=== PATIENT | male | born 1950 | race Caucasian/White ===

== ENCOUNTER → 2018-10-04 | Outpatient (CLI) | payer MEDICARE ==
[~2018-10-04] MED LIST: ASCO250T6 PO; MULTIVITAMIN PO
== END | disposition home or self-care (01) ==
LOC: RAH 08:28
PROVIDERS: ATTEND Internal Medicine Gastroenterology
DX: N28.1 Cyst of kidney, acquired (principal); K74.60 Unspecified cirrhosis of liver
CPT/HCPCS: 76700

== ENCOUNTER → 2021-10-06 | Outpatient (CLI) | payer OTHER ==
[~2021-10-06] MED LIST changes: +ASCO250T24 PO; -ASCO250T6 PO
== END | disposition home or self-care (01) ==
LOC: RAH 08:16
PROVIDERS: ATTEND Internal Medicine Gastroenterology
DX: N28.1 Cyst of kidney, acquired (principal); K74.60 Unspecified cirrhosis of liver; R16.0 Hepatomegaly, not elsewhere classified; Z90.49 Acquired absence of other specified parts of digestive tract
CPT/HCPCS: 76700; 93975

== ENCOUNTER → 2023-02-05 | Outpatient (CLI) | payer OTHER | END | disposition home or self-care (01) | LOC: RAH 09:04 | PROVIDERS: ATTEND Internal Medicine Gastroenterology | DX: N28.1 Cyst of kidney, acquired (principal); K74.60 Unspecified cirrhosis of liver | CPT/HCPCS: 76700; 93975 ==

== ENCOUNTER → 2024-11-14 | Outpatient (CLI) | payer OTHER ==
[~2024-11-14] MED LIST changes: -ASCO250T24 PO; +[UNRECOGNIZED DRUG - CODE] PO
--- NOTE | 2024-11-14 09:59 | HMCIMG ---
CHEST 2VWS HISTORY: Abnormal weight loss COMPARISON: None FINDINGS: Frontal and lateral projections of the chest were obtained. COPD changes are seen. There is no acute pulmonary infiltrates or failure. The heart is not enlarged. No evidence of aortic calcification is seen. Degenerative changes are seen of the thoracolumbar spine. IMPRESSION: 1. No acute pulmonary infiltrates.
== END | disposition home or self-care (01) ==
LOC: RAH 08:49
PROVIDERS: ATTEND Internal Medicine Gastroenterology
DX: J44.9 Chronic obstructive pulmonary disease, unspecified (principal); R63.4 Abnormal weight loss; M47.815 Spondylosis without myelopathy or radiculopathy, thoracolumbar region
CPT/HCPCS: 71046

== ENCOUNTER → 2024-12-01 | Outpatient (CLI) | payer OTHER ==
[~2024-12-01] MED LIST changes: +IOHEXOL-350 75 ML VIAL IV ONE
--- NOTE | 2024-12-01 10:19 | HMCIMG ---
CT ABDOMEN/PELVIS W/WO CONTRAS HISTORY: Liver cirrhosis COMPARISON: None TECHNIQUE: Multiple sequential axial images of the abdomen and pelvis were obtained from the dome of the diaphragm through symphysis pubis. Patient was given 75 cc of Omnipaque through intravenous route. Oral contrast was given. FINDINGS: No pleural effusion is seen bilaterally. COPD changes are seen. There is no evidence of parenchymal disease or pulmonary nodule of the visualized lower lungs. Degenerative changes of the thoracolumbar spine are present. The heart is not enlarged. Post cholecystectomy changes are seen. The liver, spleen, adrenal glands and pancreas are unremarkable. There is no evidence of hydronephrosis bilaterally. There are right renal cysts with the largest measuring 3 cm. There is possible left renal pelvic stone measuring 5 mm. Fecal material is seen in the colon. There are normal size retroperitoneal and mesenteric lymph nodes. No ascites is seen. Atherosclerotic changes are present. Appendix is not well seen limiting evaluation. Pelvic sidewalls are symmetric bilaterally. Bladder is poorly distended. IMPRESSION: 1. No bowel obstruction is seen. Multiple right renal cysts. Possible left renal pelvic stone measuring [address] was performed with one or more following dose reduction techniques: automated exposure control, adjustment of the mA and kv according to patient's size, or use of a iterative reconstruction technique.
== END | disposition home or self-care (01) ==
LOC: RAH 08:11
PROVIDERS: ATTEND Internal Medicine Gastroenterology
DX: N28.1 Cyst of kidney, acquired (principal); K74.60 Unspecified cirrhosis of liver; N32.89 Other specified disorders of bladder; J44.9 Chronic obstructive pulmonary disease, unspecified; I70.90 Unspecified atherosclerosis; M47.815 Spondylosis without myelopathy or radiculopathy, thoracolumbar region; R63.4 Abnormal weight loss; Z90.49 Acquired absence of other specified parts of digestive tract
CPT/HCPCS: 74177; Q9967; 74178

== ENCOUNTER → 2025-06-18 | Outpatient (CLI) | payer OTHER ==
[~2025-06-18] MED LIST changes: -IOHEXOL-350 75 ML VIAL IV ONE
--- NOTE | 2025-06-18 11:04 | HMCIMG ---
PROCEDURE: Esophagram. TECHNIQUE: Oral ingestion of barium and effervescent crystals was performed and multiple fluoroscopic images were obtained to evaluate the esophagus. FLUOROSCOPY TIME: 1 minutes pulsed fluoroscopy. FINDINGS: The esophagus demonstrates normal motility. The mucosa is normal without evidence of mass, ulceration, or stricture. There was grade 2 gastroesophageal reflux witnessed during this examination. There is no hiatal hernia. A barium tablet easily passed through the esophagus into the stomach without hold up. Real-time visualization of swallowing were performed and demonstrated normal swallowing mechanism, normal contour, and normal mucosa. The stomach has normal size shape and configuration the rugal fold appears to be normal duodenal bulb and duodenal sweep and upper jejunum appears to be normal. There are surgical clips in the right upper quadrant from prior cholecystectomy. IMPRESSION: Grade 2 esophageal reflux otherwise normal esophagram.
== END | disposition home or self-care (01) ==
LOC: RAH 08:43
PROVIDERS: ATTEND Internal Medicine Gastroenterology
DX: K21.9 Gastro-esophageal reflux disease without esophagitis (principal); R13.10 Dysphagia, unspecified
CPT/HCPCS: 74220